=== PATIENT | female | born 1975 | race Caucasian/White ===

== ENCOUNTER 2020-05-09 17:38 | Emergency (ER) | payer BC ==
--- NOTE | 2020-05-09 17:42 | ERPHSYRPT ---
- History of Present Illness Source: patient Exam Limitations: no limitations Timing/Duration: day(s) (Several) Activities at Onset: activity Severity of Dyspnea-Max: moderate Severity of Dyspnea-Current: moderate Possible Cause: no prior episodes Modifying Factors: Improves With: activity (Worsens), coughing Associated Symptoms: cough, No chest pain/discomfort <SHRADDHA KEENE - Last Filed: 05/09/20 18:44> <CALVIN GUERRA - Last Filed: 05/09/20 20:33> - History of Present Illness Time Seen by Provider: 05/09/20 17:42 Physician History: This is a 44-year-old obese white female with a history of hypertension who has a several day history of worsening cough and shortness of breath as well as myalgias arthralgias. The patient's was diagnosed with COVID-19 3 weeks ago. At that time, the patient's COVID-19 test was negative. She is not complained of fever, nausea vomiting or diarrhea. However she does have the above-stated symptoms and they are worsening. (SHRADDHA KEENE) Allergies/Adverse Reactions: fentanyl Adverse Reaction (Verified 05/09/20 18:06) hydromorphone [From Dilaudid] Adverse Reaction (Verified 05/09/20 18:06) morphine Adverse Reaction (Verified 05/09/20 18:06) Home Medications: Amlodipine Besylate 5 mg [Norvasc 5 mg] 10 mg PO DAILY 05/09/20 [History] Ergocalciferol (Vitamin D2) [Vitamin D] 50,000 cap PO DAILY 05/09/20 [History] Nebivolol HCl 5 MG [Bystolic 5 MG] 10 mg PO DAILY 05/09/20 [History] Potassium Citrate [Potassium Citrate ER] 10 meq PO DAILY 05/09/20 [History] Travel Risk - International Travel Have you traveled outside of the country in past 3 weeks: No - Coronavirus Screening Are you exhibiting any of the following symptoms?: Yes Symptoms: Cough: New Onset, Shortness of Breath, Headaches/Body Aches/Fatigue Close contact with a COVID-19 positive Pt in past 14-21 Days: Yes <SHRADDHA KEENE - Last Filed: 05/09/20 18:44> - Review of Systems Constitutional: No Symptoms Eyes: No Symptoms Ears, Nose, & Throat: No Symptoms Respiratory: Cough, Dyspnea Cardiac: No Symptoms Abdominal/Gastrointestinal: No Symptoms Genitourinary Symptoms: No Symptoms Musculoskeletal: Arthralgias, Myalgias Skin: No Symptoms Neurological: No Symptoms Psychological: No Symptoms Endocrine: No Symptoms Hematologic/Lymphatic: No Symptoms Immunological/Allergic: No Symptoms All Other Systems: Reviewed and Negative <SHRADDHA KEENE - Last Filed: 05/09/20 18:44> - Past Medical History Pertinent Past Medical History: Yes Neurological History: No Pertinent History ENT History: No Pertinent History Cardiac History: Hypertension Respiratory History: No Pertinent History Endocrine Medical History: No Pertinent History Musculoskeletal History: No Pertinent History GI Medical History: No Pertinent History History: No Pertinent History Psycho-Social History: No Pertinent History Female Reproductive Disorders: No Pertinent History - Past Surgical History Past Surgical History: Yes Neuro Surgical History: No Pertinent History Cardiac: No Pertinent History Respiratory: No Pertinent History Gastrointestinal: No Pertinent History Genitourinary: No Pertinent History Musculoskeletal: No Pertinent History Female Surgical History: No Pertinent History <SHRADDHA KEENE - Last Filed: 05/09/20 18:44> - Physical Exam General Appearance: mild distress, alert, anxiety, obese Eye Exam: PERRL/EOMI, eyes nml inspection Ears, Nose, Throat Exam: hearing grossly normal Neck Exam: normal inspection, non-tender, supple, full range of motion Respiratory Exam: normal breath sounds, lungs clear, respiratory distress, airway intact, No chest tenderness Cardiovascular/Chest Exam: normal heart sounds, regular rate/rhythm, normal peripheral pulses Abdominal/Gastrointestinal Exam: soft, normal bowel sounds, No tenderness Rectal Exam: not done Extremity Exam: non-tender, normal range of motion, normal inspection Neurologic Exam: alert, oriented x 3, cooperative, inpatient pharmacist II-XII nml as tested, normal mood/affect, nml cerebellar function, nml station & gait, sensation nml Skin Exam: normal color, warm, dry Lymphatic Exam: No adenopathy SpO2 Interpretation: normal O2 Delivery: Room Air <SHRADDHA KEENE - Last Filed: 05/09/20 18:44> - Nursing Vital Signs Nursing Vital Signs: Initial Vital Signs Temperature 99.7 F 05/09/20 18:06 Pulse Rate 78 11/27/20 18:06 Respiratory Rate 24 05/09/20 18:06 Blood Pressure 171/103 05/09/20 18:06 O2 Sat by Pulse Oximetry 97 05/09/20 18:06 Pain Scale Pain Intensity 4 - Course Nursing assessment & vital signs reviewed: Yes EKG Interpreted by Me: RATE (73), Sinus Rhythm, NORMAL AXIS, NORMAL INTERVALS, NORMAL QRS, NORMAL ST-T, Other (No comparison EKG available. Today's EKG shows no acute ischemic changes.) <SHRADDHA KEENE - Last Filed: 05/09/20 18:44> - Course EKG Interpreted by Me: Non-specific ST Changes - Radiology Exams Chest X-ray Interpretation: Reviewed by me, Teleradiologist Report, No Pneumonia, Other (some scattered minor areas may be early infilt - rad read was negative) <CALVIN GUERRA - Last Filed: 05/09/20 20:33> Ordered Tests: Active Orders 24 hr Category Date Time Status Cruise Counselor STAT Care 05/09/20 18:25 Active EKG-ER Only STAT Care 05/09/20 18:25 Active IV Insertion STAT Care 05/09/20 18:25 Active Isolation, Initiate & Maintain STAT Care 05/09/20 18:25 Active CHEST 1 VIEW (PORTABLE) Stat Exams 05/09/20 18:25 Completed BLOOD CULTURE Stat Lab 05/09/20 Received CBC W DIFF Stat Lab 05/09/20 19:00 Completed CMP Stat Lab 05/09/20 19:00 Completed D-DIMER QUANTITATIVE Stat Lab 05/09/20 19:00 Completed Ferritin Stat Lab 05/09/20 19:00 Completed INFLUENZA A+B PETTY Stat Lab 05/09/20 19:00 Completed LDH-LACTATE DEHYDROGENASE Stat Lab 05/09/20 19:00 Completed Lactic Acid Stat Lab 05/09/20 18:35 Completed Manual Differential NC Stat Lab 05/09/20 19:00 Completed [place] Screen Stat Lab 05/09/20 19:00 Completed TROPONIN Q3H Lab 05/09/20 19:00 Completed TROPONIN Q3H Lab 05/09/20 21:30 Ordered TROPONIN Q3H Lab 05/10/20 00:30 Ordered TROPONIN Q3H Lab 05/10/20 03:30 Ordered TROPONIN Q3H Lab 11/28/20 06:30 Ordered Medication Summary Generic Name Dose Route Start Last Admin Trade Name Torrey PRN Reason Stop Dose Admin Sodium Chloride 1,000 mls @ 50 mls/hr 05/09/20 18:30 05/09/20 18:50 Sodium Chloride 0.9% 1000 Ml IV 06/08/20 18:29 50 mls/hr .Q20H ROMERO Administration Lab/Rad Data: Laboratory Result Diagrams 05/09/20 19:00 05/09/20 19:00 Laboratory Results 05/09/20 05/09/20 05/09/20 Range/Units 19:00 19:00 19:00 WBC (4.0-10.5) K/mm3 RBC (4.1-5.4) M/mm3 Hgb (12.0-16.0) gm/dl Hct (35-47) % MCV (78-100) fl MCH (26-32) pg MCHC (32-36) g/dl RDW (11.5-14.0) % Plt Count (150-450) K/mm3 MPV (7.5-11.0) fl Segmented Neutrophils (36.0-66.0) % Lymphocytes (Manual) (24-44) % Monocytes (Manual) (0.0-12.0) % Eosinophils (Manual) (0.00-3.0) % Platelet Estimate (NORMAL) RBC Morphology D-Dimer (215-500) ng/mL Sodium (137-145) mmol/L Potassium (3.5-5.1) mmol/L Chloride (98-107) mmol/L Carbon Dioxide (22-30) mmol/L Anion Gap (5-15) MEQ/L BUN (7-17) mg/dL Creatinine (0.52-1.04) mg/dL Estimated GFR ML/MIN Glucose (74-106) mg/dL Lactic Acid (0.4-2.0) Calcium (8.4-10.2) mg/dL Ferritin 32.3 (6.24-137) ng/mL Total Bilirubin (0.2-1.3) mg/dL AST (14-36) U/L ALT (0-35) U/L Alkaline Phosphatase (38-126) U/L Lactate Dehydrogenase (120-246) U/L Troponin I < 0.012 (0.000-0.034) ng/mL Serum Total Protein (6.3-8.2) g/dL Albumin (3.5-5.0) g/dL Monoscreen NEGATIVE (Negative) Influenza Type A Ag (NEGATIVE) Influenza Type B Ag (NEGATIVE) Group A Strep Antibody (NEGATIVE) Slides for Path Review 05/09/20 05/09/20 05/09/20 Range/Units 19:00 19:00 19:00 WBC (4.0-10.5) K/mm3 RBC (4.1-5.4) M/mm3 Hgb (12.0-16.0) gm/dl Hct (35-47) % MCV (78-100) fl MCH (26-32) pg MCHC (32-36) g/dl RDW (11.5-14.0) % Plt Count (150-450) K/mm3 MPV (7.5-11.0) fl Segmented Neutrophils (36.0-66.0) % Lymphocytes (Manual) (24-44) % Monocytes (Manual) (0.0-12.0) % Eosinophils (Manual) (0.00-3.0) % Platelet Estimate (NORMAL) RBC Morphology D-Dimer 319 (215-500) ng/mL Sodium (137-145) mmol/L Potassium (3.5-5.1) mmol/L Chloride (98-107) mmol/L Carbon Dioxide (22-30) mmol/L Anion Gap (5-15) MEQ/L BUN (7-17) mg/dL Creatinine (0.52-1.04) mg/dL Estimated GFR ML/MIN Glucose (74-106) mg/dL Lactic Acid (0.4-2.0) Calcium (8.4-10.2) mg/dL Ferritin (6.24-137) ng/mL Total Bilirubin (0.2-1.3) mg/dL AST (14-36) U/L ALT (0-35) U/L Alkaline Phosphatase (38-126) U/L Lactate Dehydrogenase (120-246) U/L Troponin I (0.000-0.034) ng/mL Serum Total Protein (6.3-8.2) g/dL Albumin (3.5-5.0) g/dL Monoscreen (Negative) Influenza Type A Ag NEGATIVE (NEGATIVE) Influenza Type B Ag NEGATIVE (NEGATIVE) Group A Strep Antibody NOT DETECTED (NEGATIVE) Slides for Path Review 05/09/20 05/09/20 05/09/20 Range/Units 19:00 19:00 18:35 WBC 11.6 H (4.0-10.5) K/mm3 RBC 5.03 (4.1-5.4) M/mm3 Hgb 15.1 (12.0-16.0) gm/dl Hct 46.5 (35-47) % MCV 92.4 (78-100) fl MCH 30.0 (26-32) pg MCHC 32.5 (32-36) g/dl RDW 13.7 (11.5-14.0) % Plt Count 251 (150-450) K/mm3 MPV 12.3 H (7.5-11.0) fl Segmented Neutrophils 63 (36.0-66.0) % Lymphocytes (Manual) 29 (24-44) % Monocytes (Manual) 3 (0.0-12.0) % Eosinophils (Manual) 5 H (0.00-3.0) % Platelet Estimate NORMAL (NORMAL) RBC Morphology NORMAL D-Dimer (215-500) ng/mL Sodium 142 (137-145) mmol/L Potassium 3.6 (3.5-5.1) mmol/L Chloride 109 H (98-107) mmol/L Carbon Dioxide 23 (22-30) mmol/L Anion Gap 13.6 (5-15) MEQ/L BUN 10 (7-17) mg/dL Creatinine 0.60 (0.52-1.04) mg/dL Estimated GFR > 60.0 ML/MIN Glucose 99 (74-106) mg/dL Lactic Acid 1.1 (0.4-2.0) Calcium 9.8 (8.4-10.2) mg/dL Ferritin (6.24-137) ng/mL Total Bilirubin 0.30 (0.2-1.3) mg/dL AST 23 (14-36) U/L ALT 21 (0-35) U/L Alkaline Phosphatase 54 (38-126) U/L Lactate Dehydrogenase 152 (120-246) U/L Troponin I (0.000-0.034) ng/mL Serum Total Protein 8.1 (6.3-8.2) g/dL Albumin 4.9 (3.5-5.0) g/dL Monoscreen (Negative) Influenza Type A Ag (NEGATIVE) Influenza Type B Ag (NEGATIVE) Group A Strep Antibody (NEGATIVE) Slides for Path Review Cancelled - Progress Air Movement: good Counseled pt/family regarding: lab results, diagnosis, rad results <SHRADDHA KEENE - Last Filed: 05/09/20 18:44> - Progress Progress: improved, re-examined Air Movement: good Blood Culture(s) Obtained: No Antibiotics given: No Counseled pt/family regarding: lab results, diagnosis, need for follow-up, rad results <CALVIN GUERRA - Last Filed: 05/09/20 20:33> - Progress Progress Note: 05/09/20 18:42 pt taken at change of shift in handoff from Dr. Keene after discussion of pending labs, symptoms Hx, intro to pt , and current workup. 05/09/20 20:18 pt has no current CP or shortness of breath; discussed the limitations of testing performed and that additional pathology could be evolving undetected including cardiovascular and CAD even with normal reported cath 7-10 yrs ago and with neg D dimer; offered admission. pt chooses DC with outpt f/u with PCP and I advised also ram car operator as she may be a long-hauler covid. she is comfortable with this and has capacity to make this choice. 05/09/20 20:31 also discussed was DVT proph and steroids, but since pt does not yet have a c ovid diagnosis and is OK from O2 standpoint it is not clinically indicated , and pt also agrees with the plan to hold off these at this time and has the capacity to make this choice. (CALVIN GUERRA) - Departure Departure Disposition: Home Critical Care Time: No <SHRADDHA KEENE - Last Filed: 05/09/20 18:44> - Departure Departure Disposition: Home Critical Care Time: No <CALVIN GUERRA - Last Filed: 05/09/20 20:33> - Departure Clinical Impression: Cough, Person under investigation for COVID-19, Hypertension Condition: Good Referrals: DEREK WELCH, ROOM SERVICE RUNNER [Primary Care Provider] - Instructions: High Blood Pressure (DC), Cough, Adult (DC), Coronavirus Disease 2019 (COVID-19) (DC) Additional Instructions: your Covid test will take a few days to return and you should self quarantine until this is back and continue if it is positive. Your lung tests show that you are currently doing OK, even if COvid is present , but if symptoms increase return . see your Dr to consider referral to a lung specialist . continue to recheck your blood pressure and take prescribed meds for this and see your Dr. this week to adjust your meds for optimal control. return meantime if rising higher or furhter symptoms of concern meantime. although our initial testing does not find any heart problems, this is still possible to be evolving undetected especially with COvid, and you should return meantime if any concerns .
[2020-05-09] MEDS ORDERED: Sodium Chloride 0.9% 1000 ML 1,000 ML IV SCH (18:30)
[2020-05-09] MEDS ORDERED: Sodium Chloride 0.9% 1000 ML 1,000 ML ONE (18:50)
[2020-05-09 19:23] LABS: Hematocrit 46.5 % (35-47); Hemoglobin 15.1 gm/dl (12.0-16.0); Mean Cell Volume 92.4 fl (78-100); Mean Corpuscular Hgb Concent. 32.5 g/dl (32-36); Mean Platelet Volume 12.3 fl (7.5-11.0); Platelet Count 251 K/mm3 (150-450); Red Blood Count 5.03 M/mm3 (4.1-5.4); Red Cell Distribution Width 13.7 % (11.5-14.0); White Blood Count 11.6 K/mm3 (4.0-10.5)
[2020-05-09 19:26] LABS: ALBUMIN 4.9 g/dL (3.5-5.0); ALKALINE PHOSPHATASE 54 U/L (38-126); ANION GAP 13.6 MEQ/L (5-15); BLOOD UREA NITROGEN 10 mg/dL (7-17); CHLORIDE 109 mmol/L (98-107); Calcium 9.8 mg/dL (8.4-10.2); Carbon Dioxide 23 mmol/L (22-30); EST GLOMERULAR FILTRATION RATE > 60.0 ML/MIN; Glucose 99 mg/dL (74-106); LDH-LACTATE DEHYDROGENASE 152 U/L (120-246); Potassium 3.6 mmol/L (3.5-5.1); SGOT/AST 23 U/L (14-36); SGPT/ALT 21 U/L (0-35); SODIUM 142 mmol/L (137-145); Total Protein 8.1 g/dL (6.3-8.2)
--- NOTE | 2020-05-09 19:30 | XRAY ---
Indication: Fever, cough, and chest pain. Comparison: November 07, 2009. Portable chest again demonstrates normal heart and lungs. Bony thorax intact with interval distal left clavicle resection.
[2020-05-09 19:46] LABS: INFLUENZA A NEGATIVE (NEGATIVE); INFLUENZA B NEGATIVE (NEGATIVE)
[2020-05-09 19:55] LABS: Eosinophil 5 % (0.00-3.0); Lymphocytes 29 % (24-44); Monocyte 3 % (0.0-12.0); Neutrophils 63 % (36.0-66.0); Platelet Estimate NORMAL (NORMAL); Total Cells Counted 100
[2020-05-09 20:41] VITALS: BP 147/82; PULSE 67; O2SAT 98
== END 2020-05-09 21:05 | disposition home or self-care (01) ==
LOC: ED 17:38
DX: R05 Cough (principal); I10 Essential (primary) hypertension; R06.02 Shortness of breath; R51.9 Headache, unspecified; M79.10 Myalgia, unspecified site; Z79.899 Other long term (current) drug therapy; Z20.828 Contact with and (suspected) exposure to other viral communicable diseases
CPT/HCPCS: 36000; 36415; 71045; 80053; 82728; 83605; 83615; 84484; 85025; 85379; 86308; 87040; 87400; 87651; 93005; 93041; 96360; 96361; 99284; U0003

== ENCOUNTER 2020-06-09 18:18 | Emergency (ER) | payer BC ==
[2020-06-09] MEDS ORDERED: TYLENOL 325 MG PO ONE (19:16)
[2020-06-09] MEDS ORDERED: BENADRYL 50 MG/ML IV ONE (19:18)
[2020-06-09] MEDS ORDERED: Compazine 10 MG/2 ML IV ONE (19:18)
[2020-06-09] MEDS ORDERED: TYLENOL 325 MG ONE (19:29)
[2020-06-09] MEDS ORDERED: BENADRYL 50 MG/ML ONE (19:29)
[2020-06-09] MEDS ORDERED: Sodium Chloride 0.9% 1000 ML 1,000 ML ONE (19:30)
[2020-06-09] MEDS ORDERED: Compazine 10 MG/2 ML ONE (19:30)
[2020-06-09] MEDS ORDERED: Sodium Chloride 0.9% 1000 ML 1,000 ML IV SCH (19:30)
[2020-06-09 19:58] LABS: Absolute Neutrophil Ct (ANC) 6.14 (1.4-6.9); BASOPHIL % 0.3 % (0.0-0.4); Basophil (Absolute #) 0.03 (0-0.4); Eosinophil % 5.8 % (0.00-5.0); Eosinophil (Absolute #) 0.57 (0-0.5); Hematocrit 47.5 % (35-47); Hemoglobin 15.3 gm/dl (12.0-16.0); Lymphocyte (Absolute #) 2.18 (1.0-4.6); Mean Cell Volume 91.5 fl (78-100); Mean Corpuscular Hemoglobin 29.5 pg (26-32); Mean Corpuscular Hgb Concent. 32.2 g/dl (32-36); Mean Platelet Volume 10.7 fl (7.5-11.0); Monocyte (Absolute #) 0.99 (0.0-1.3); Neutrophil % 61.9 % (36.0-66.0); Platelet Count 282 K/mm3 (150-450); Red Blood Count 5.19 M/mm3 (4.1-5.4); Red Cell Distribution Width 13.7 % (11.5-14.0); White Blood Count 9.9 K/mm3 (4.0-10.5)
[2020-06-09 20:10] LABS: ALBUMIN 4.4 g/dL (3.5-5.0); ALKALINE PHOSPHATASE 51 U/L (38-126); ANION GAP 8.4 MEQ/L (5-15); BLOOD UREA NITROGEN 10 mg/dL (7-17); CHLORIDE 104 mmol/L (98-107); Calcium 9.3 mg/dL (8.4-10.2); Carbon Dioxide 29 mmol/L (22-30); Creatinine 1 0.64 mg/dL (0.52-1.04); EST GLOMERULAR FILTRATION RATE > 60.0 ML/MIN; Glucose 106 mg/dL (74-106); SGOT/AST 30 U/L (14-36); SGPT/ALT 31 U/L (0-35); SODIUM 137 mmol/L (137-145); Total Protein 7.6 g/dL (6.3-8.2)
[2020-06-09 21:11] VITALS: O2SAT 97
--- NOTE | 2020-06-09 21:18 | ERPHSYRPT ---
- History of Present Illness Time Seen by Provider: 06/09/20 18:30 Source: patient Exam Limitations: no limitations Patient Subjective Stated Complaint: pt here for headache and not feeling well for 2 months, she states she has ran a fever almost very day for 2 month, also co neck pain. she has been seen at 2 hospitals for the same thing Triage Nursing Assessment: pt alert, walked in, resp easy, has face mask in place, pt holding hand over eyes, lights dimmed, skin w/d/p Physician History: Patient is a 44-year-old female presents to our ED with complaints of a global headache for 2 months. Patient advises that she has a history of pituitary adenoma. Symptoms started with several bouts of diarrhea. Diarrhea essentially resolved. Patient states that her headache has been associated with low-grade fevers. Patient intermittently experiences neck stiffness. No trauma. No nausea or vomiting. Mild photophobia. Patient has been seen at outside hospital for this same issue. Patient was treated with antibiotics and steroids. Patient symptoms transiently resolved for approximately 2 weeks. Patient symptoms recurred over the past 2 weeks. Patient voices no other complaints or concerns at this time. Timing/Duration: other (2 months) Quality: aching Head Pain Location: global Severity of Pain-Max: moderate Severity of Pain-Current: mild Recent Head Trauma: no recent headache/trauma, chronic headaches Modifying Factors: Improves With: exposure to light Associated Symptoms: sensitive to light, No dizziness, No facial pain, No loss of consciousness, No nasal congestion, No numbness in legs/feet, No rash, No sweating, No scotoma, No seizures, No speech problems, No trouble walking, No visual disturbance, No weakness Previous symptoms: no prior history Allergies/Adverse Reactions: fentanyl Adverse Reaction (Verified 06/09/20 18:35) hydromorphone [From Dilaudid] Adverse Reaction (Verified 06/09/20 18:35) morphine Adverse Reaction (Verified 06/09/20 18:35) Home Medications: Amlodipine Besylate 5 mg [Norvasc 5 mg] 10 mg PO DAILY 05/09/20 [History] Ergocalciferol (Vitamin D2) [Vitamin D] 50,000 cap PO DAILY 05/09/20 [History] Nebivolol HCl 5 MG [Bystolic 5 MG] 10 mg PO DAILY 05/09/20 [History] Potassium Citrate [Potassium Citrate ER] 10 meq PO DAILY 05/09/20 [History] Hx Tetanus, Diphtheria Vaccination/Date Given: Yes Hx Influenza Vaccination/Date Given: No Hx Pneumococcal Vaccination/Date Given: No Immunizations Up to Date: Yes Travel Risk - International Travel Have you traveled outside of the country in past 3 weeks: No - Coronavirus Screening Symptoms: Fever, Headaches/Body Aches/Fatigue Close contact with a COVID-19 positive Pt in past 14-21 Days: No - Review of Systems Constitutional: No Symptoms, No Fever, No Chills Eyes: No Symptoms Ears, Nose, & Throat: No Symptoms Respiratory: No Symptoms, No Cough, No Dyspnea Cardiac: No Symptoms, No Chest Pain, No Edema, No Syncope Abdominal/Gastrointestinal: No Symptoms, No Abdominal Pain, No Nausea, No Vomiting, No Diarrhea Genitourinary Symptoms: No Symptoms, No Dysuria Musculoskeletal: No Symptoms, No Back Pain, No Neck Pain Skin: No Symptoms, No Rash Neurological: No Symptoms, No Dizziness, No Focal Weakness, No Sensory Changes Psychological: No Symptoms Endocrine: No Symptoms Hematologic/Lymphatic: No Symptoms Immunological/Allergic: No Symptoms All Other Systems: Reviewed and Negative - Past Medical History Pertinent Past Medical History: Yes Neurological History: No Pertinent History ENT History: No Pertinent History Cardiac History: Hypertension Respiratory History: No Pertinent History Endocrine Medical History: No Pertinent History Musculoskeletal History: No Pertinent History GI Medical History: No Pertinent History History: No Pertinent History Psycho-Social History: No Pertinent History Female Reproductive Disorders: No Pertinent History - Past Surgical History Past Surgical History: Yes Neuro Surgical History: No Pertinent History Cardiac: No Pertinent History Respiratory: No Pertinent History Gastrointestinal: Cholecystectomy Genitourinary: No Pertinent History Musculoskeletal: No Pertinent History Female Surgical History: Tubal Ligation - Social History Smoking Status: Never smoker Exposure to second hand smoke: No Drug Use: none Patient Lives Alone: No - Female History Hx Last Menstrual Period: dec Hx Now: No - Nursing Vital Signs Nursing Vital Signs: Initial Vital Signs Temperature 98.7 F 06/09/20 18:24 Pulse Rate 78 06/09/20 18:24 Respiratory Rate 16 06/09/20 18:24 Blood Pressure 191/118 06/09/20 18:24 O2 Sat by Pulse Oximetry 98 06/09/20 18:24 Pain Scale Pain Intensity 2 - Physical Exam General Appearance: no apparent distress Eye Exam: PERRL/EOMI Ears, Nose, Throat Exam: normal ENT inspection, moist mucous membranes Neck Exam: normal inspection, supple, full range of motion, No meningismus Respiratory Exam: normal breath sounds, lungs clear Cardiovascular Exam: regular rate/rhythm, normal heart sounds Gastrointestinal/Abdominal Exam: soft, No tenderness, No distention Back Exam: normal inspection, normal range of motion Extremity Exam: normal inspection Mental Status Exam: alert, oriented x 3, cooperative air crew member Exam: normal hearing, normal speech, PERRL, abnormal gag reflex, No abnormal eye position, No abnormal pupil position, No abnormal speech, No facial asymmetry, No facial droop, No facial paresthesias, No facial weakness, No gaze palsy, No hearing deficit (R), No hearing deficit (L), No tongue deviation to R, No tongue deviation to L, No tongue midline Coordination/Gait Exam: normal gait, normal cerebellar function Motor/Sensory Exam: no motor deficit, no sensory deficit, negative Babinski's sign, No no pronator drift, No sensory deficit, No weak motor strength RUE, No weak motor strength LUE, No weak motor strength RLE, No weak motor strength LLE Skin Exam: normal color, warm, dry, No rash Lymphatic Exam: adenopathy SpO2 Interpretation: normal SpO2: 97 O2 Delivery: Room Air - Course Nursing assessment & vital signs reviewed: Yes - CT Exams Head CT Interpretation: Tele-radiologist Report (Continued normal CT head) Ordered Tests: Active Orders 24 hr Category Date Time Status IV Insertion STAT Care 06/09/20 19:16 Active HEAD WITHOUT CONTRAST [CT] Stat Exams 06/09/20 19:20 Taken BLOOD CULTURE Stat Lab 06/09/20 19:50 Received CBC W DIFF Stat Lab 06/09/20 19:40 Completed CMP Stat Lab 06/09/20 19:40 Completed TROPONIN Q3H Lab 06/09/20 19:40 Completed TROPONIN Q3H Lab 06/09/20 22:30 Ordered TROPONIN Q3H Lab 06/10/20 01:30 Ordered TROPONIN Q3H Lab 06/10/20 04:30 Ordered TROPONIN Q3H Lab 06/10/20 07:30 Ordered UA W/RFX UR CULTURE Stat Lab 06/09/20 20:41 Completed Medication Summary Generic Name Dose Route Start Last Admin Trade Name Freq PRN Reason Stop Dose Admin Sodium Chloride 1,000 mls @ 100 mls/hr 06/09/20 19:30 06/09/20 19:44 Sodium Chloride 0.9% 1000 Ml IV 07/09/20 19:29 100 mls/hr .Q10H ROMERO Administration Discontinued Medications Generic Name Dose Route Start Last Admin Trade Name Freq PRN Reason Stop Dose Admin Acetaminophen 975 mg 06/09/20 19:16 06/09/20 19:36 Tylenol 325 Mg PO 06/09/20 19:17 975 mg STAT ONE Administration Acetaminophen Confirm 06/09/20 19:29 Tylenol 325 Mg Administered 06/09/20 19:30 Dose 975 mg .ROUTE .STK-MED ONE Diphenhydramine HCl 25 mg 06/09/20 19:18 06/09/20 19:47 Benadryl 50 Mg/Ml IV 06/09/20 19:19 25 mg STAT ONE Administration Diphenhydramine HCl Confirm 06/09/20 19:29 Benadryl 50 Mg/Ml Administered 06/09/20 19:30 Dose 50 mg .ROUTE .STK-MED ONE Prochlorperazine Edisylate 10 mg 06/09/20 19:18 06/09/20 19:49 Compazine 10 Mg/2 Ml IV 06/09/20 19:19 10 mg STAT ONE Administration Prochlorperazine Edisylate Confirm 06/09/20 19:30 Compazine 10 Mg/2 Ml Administered 06/09/20 19:31 Dose 10 mg .ROUTE .STK-MED ONE Lab/Rad Data: Laboratory Result Diagrams 06/09/20 19:40 06/09/20 19:40 Laboratory Results 06/09/20 06/09/20 06/09/20 Range/Units 20:41 19:40 19:40 WBC (4.0-10.5) K/mm3 RBC (4.1-5.4) M/mm3 Hgb (12.0-16.0) gm/dl Hct (35-47) % MCV (78-100) fl MCH (26-32) pg MCHC (32-36) g/dl RDW (11.5-14.0) % Plt Count (150-450) K/mm3 MPV (7.5-11.0) fl Gran % (36.0-66.0) % Eos # (Auto) (0-0.5) Absolute Lymphs (auto) (1.0-4.6) Absolute Monos (auto) (0.0-1.3) Lymphocytes % (24.0-44.0) % Monocytes % (0.0-12.0) % Eosinophils % (0.00-5.0) % Basophils % (0.0-0.4) % Absolute Granulocytes (1.4-6.9) Basophils # (0-0.4) Sodium 137 (137-145) mmol/L Potassium 4.0 (3.5-5.1) mmol/L Chloride 104 (98-107) mmol/L Carbon Dioxide 29 (22-30) mmol/L Anion Gap 8.4 (5-15) MEQ/L BUN 10 (7-17) mg/dL Creatinine 0.64 (0.52-1.04) mg/dL Estimated GFR > 60.0 ML/MIN Glucose 106 (74-106) mg/dL Calcium 9.3 (8.4-10.2) mg/dL Total Bilirubin 0.50 (0.2-1.3) mg/dL AST 30 (14-36) U/L ALT 31 (0-35) U/L Alkaline Phosphatase 51 (38-126) U/L Troponin I < 0.012 (0.000-0.034) ng/mL Serum Total Protein 7.6 (6.3-8.2) g/dL Albumin 4.4 (3.5-5.0) g/dL Urine Color STRAW (YELLOW) Urine Appearance CLEAR (CLEAR) Urine pH 7.0 (5-6) Ur Specific [place] 1.003 (1.005-1.025) Urine Protein NEGATIVE (Negative) Urine Ketones NEGATIVE (NEGATIVE) Urine Blood NEGATIVE (0-5) Scar/ul Urine Nitrite NEGATIVE (NEGATIVE) Urine Bilirubin NEGATIVE (NEGATIVE) Urine Urobilinogen NEGATIVE (0-1) mg/dL Ur Leukocyte Esterase NEGATIVE (NEGATIVE) Urine WBC (Auto) NONE (0-5) /HPF Urine RBC (Auto) NONE (0-2) /HPF U Epithel Cells (Auto) NONE (FEW) /HPF Urine Bacteria (Auto) NONE (NEGATIVE) /HPF Urine Culture Reflexed NO (NO) Urine Glucose NEGATIVE (NEGATIVE) mg/dL 06/09/20 Range/Units 19:40 WBC 9.9 (4.0-10.5) K/mm3 RBC 5.19 (4.1-5.4) M/mm3 Hgb 15.3 (12.0-16.0) gm/dl Hct 47.5 H (35-47) % MCV 91.5 (78-100) fl MCH 29.5 (26-32) pg MCHC 32.2 (32-36) g/dl RDW 13.7 (11.5-14.0) % Plt Count 282 (150-450) K/mm3 MPV 10.7 (7.5-11.0) fl Gran % 61.9 (36.0-66.0) % Eos # (Auto) 0.57 H (0-0.5) Absolute Lymphs (auto) 2.18 (1.0-4.6) Absolute Monos (auto) 0.99 (0.0-1.3) Lymphocytes % 22.0 L (24.0-44.0) % Monocytes % 10.0 (0.0-12.0) % Eosinophils % 5.8 H (0.00-5.0) % Basophils % 0.3 (0.0-0.4) % Absolute Granulocytes 6.14 (1.4-6.9) Basophils # 0.03 (0-0.4) Sodium (137-145) mmol/L Potassium (3.5-5.1) mmol/L Chloride (98-107) mmol/L Carbon Dioxide (22-30) mmol/L Anion Gap (5-15) MEQ/L BUN (7-17) mg/dL Creatinine (0.52-1.04) mg/dL Estimated GFR ML/MIN Glucose (74-106) mg/dL Calcium (8.4-10.2) mg/dL Total Bilirubin (0.2-1.3) mg/dL AST (14-36) U/L ALT (0-35) U/L Alkaline Phosphatase (38-126) U/L Troponin I (0.000-0.034) ng/mL Serum Total Protein (6.3-8.2) g/dL Albumin (3.5-5.0) g/dL Urine Color (YELLOW) Urine Appearance (CLEAR) Urine pH (5-6) Ur Specific [place] (1.005-1.025) Urine Protein (Negative) Urine Ketones (NEGATIVE) Urine Blood (0-5) Scar/ul Urine Nitrite (NEGATIVE) Urine Bilirubin (NEGATIVE) Urine Urobilinogen (0-1) mg/dL Ur Leukocyte Esterase (NEGATIVE) Urine WBC (Auto) (0-5) /HPF Urine RBC (Auto) (0-2) /HPF U Epithel Cells (Auto) (FEW) /HPF Urine Bacteria (Auto) (NEGATIVE) /HPF Urine Culture Reflexed (NO) Urine Glucose (NEGATIVE) mg/dL - Progress Progress: improved Air Movement: good Progress Note: 06/09/20 21:48 Patient reassessed. Repeat neuro exam within normal limits. CT head negative for acute intracranial pathology. Blood laboratory work-up essentially nonremarkable. Patient's headache essentially resolved. Patient requesting discharge. We advised teleneuro as patient symptoms have been ongoing. Patient refused to wait for a teleneuro evaluation. Patient states she wants to go home and she will follow-up with her primary care doctor we did discussed the benefits of a lumbar puncture as well as the risks. Patient declined a lumbar puncture. Patient understand that leaving AGAINST MEDICAL ADVICE result and delayed diagnosis, increased risk of morbidity, mortality, short and disability including . In spite of patient's wrist she has decided to leave without undergoing a lumbar puncture and without blood undergoing a formal teleneuro evaluation. Patient understand that she may return to our ED at any time to complete the advised work-up. Patient agrees to follow-up with her primary care doctor within 48 hours for a reevaluation. Antibiotics given: No Counseled pt/family regarding: lab results, diagnosis, need for follow-up, rad results - Departure Departure Disposition: Home Clinical Impression: Migraine, Neck stiffness Condition: Stable Critical Care Time: No Referrals: DEREK WELCH CABLE TELEVISION ACCESS COORDINATOR [Primary Care Provider] - Additional Instructions: Discharge/Care Plan CARTER HAMMER was seen on 06/09/20 in the Emergency Room. The patient was counseled regarding Diagnosis,Lab results, Imaging studies, need for follow up and when to return to the Emergency Room. Prescriptions given: Discharge Note I have spoken with the patient and/or caregivers. I have explained the patient's condition, diagnosis and treatment plan based on the information available to me at this time. I have answered the patient's and/or caregiver's questions and addressed any concerns. The patient and/or caregivers have as good understanding of the patient's diagnosis, condition and treatment plan as can be expected at this point. The vital signs have been stable. The patient's condition is stable and appropriate for discharge from the emergency department. The patient will pursue further outpatient evaluation with the primary care physician or other designated or consulting physician as outlined in the discharge instructions. The patient and/or caregivers are agreeable to this plan of care and follow-up instructions have been explained in detail. The patient and/or caregivers have received these instruction. The patient/and or caregivers are aware that any significant change in condition or worsening of symptoms should prompt an immediate return to this or the closest emergency department or call 911.
[2020-06-09 21:21] LABS: Appearance CLEAR (CLEAR); Bilirubin NEGATIVE (NEGATIVE); Blood NEGATIVE Ery/ul (0-5); Glucose NEGATIVE (NEGATIVE); Ketones NEGATIVE (NEGATIVE); Leukocyte Esterase NEGATIVE (NEGATIVE); Nitrite NEGATIVE (NEGATIVE); Protein,Urine Dip NEGATIVE (Negative); Specific Gravity 1.003 (1.005-1.025); Urobilinogen NEGATIVE mg/dL (0-1)
[2020-06-09 22:14] VITALS: BP 168/100; PULSE 77
--- NOTE | 2020-06-10 08:50 | XRAY ---
Indication: Fever, headache, and photophobia. Multiple contiguous axial images obtained through the head without contrast. Comparison: March 01, 2010. Normal appearing brain parenchyma, ventricles, and bony calvarium. Visualized paranasal sinuses and mastoid air cells are clear. Impression: Continued normal CT head without contrast exam.
== END 2020-06-09 22:18 | disposition home or self-care (01) ==
LOC: ED 18:18
DX: M43.6 Torticollis (principal)
CPT/HCPCS: 36000; 36415; 70450; 80053; 81001; 84484; 85025; 87040; 96360; 96374; 96375; 99284; J1200; A9270-GY

== ENCOUNTER 2023-08-28 06:42 | Emergency (ER) | payer BC ==
[2023-08-28 07:00] VITALS: RESP 18; TEMP 97.6; O2SAT 99
[2023-08-28] MEDS ORDERED: MOTRIN 600 MG ONE (07:46)
[2023-08-28] MEDS: MOTRIN 600 MG PO ONE (07:46)
--- NOTE | 2023-08-28 07:47 | ERPHSYRPT ---
- History of Present Illness Time Seen by Provider: 08/28/23 07:22 Source: patient Exam Limitations: no limitations Patient Subjective Stated Complaint: R 5th digit toe pain/injury Triage Nursing Assessment: pt transferred from wheelchair to cot by self, at bedside, pt alert and oriented x3, skin pwd, pt c/o R pinky toe injury after stubbing in the door frame about an hr prior to arrival, pt has bruising and swelling on R pinky toe Physician History: 48 years old female presented in the ER with complains of right fifth toe injury. Patient reports she was walking in a dark and accidentally hit a door frame almost an hour prior to arrival with moderate intensity sharp pain, aggravated with movements and ambulation with associated swelling of the toe. No injury anywhere else. No skin break. No injury to the nail. Allergies/Adverse Reactions: fentanyl Allergy (Mild, Verified 08/28/23 06:51) Itching hydromorphone [From Dilaudid] Allergy (Mild, Verified 08/28/23 06:51) Itching morphine Allergy (Mild, Verified 08/28/23 06:51) Itching Home Medications: Amlodipine Besylate 5 mg [Norvasc 5 mg] 10 mg PO DAILY 05/09/20 [History] Nebivolol HCl 5 MG [Bystolic 5 MG] 5 mg PO DAILY 05/09/20 [History] Potassium Citrate [Potassium Citrate ER] 10 meq PO DAILY 05/09/20 [History] Hx Tetanus, Diphtheria Vaccination/Date Given: Yes Hx Influenza Vaccination/Date Given: No Hx Pneumococcal Vaccination/Date Given: No Travel Risk - International Travel Have you traveled outside of the country in past 3 weeks: No - Coronavirus Screening Are you exhibiting any of the following symptoms?: No Close contact with a COVID-19 positive Pt in past 14-21 Days: No - Vaccine Status Have you recieved a Covid-19 vaccination: No - Review of Systems Constitutional: No Symptoms Respiratory: No Symptoms Cardiac: No Symptoms Genitourinary Symptoms: No Symptoms Musculoskeletal: Injury, Joint Pain Skin: No Symptoms Neurological: No Symptoms Endocrine: No Symptoms Hematologic/Lymphatic: No Symptoms - Past Medical History Pertinent Past Medical History: Yes Neurological History: No Pertinent History ENT History: No Pertinent History Cardiac History: Arrhythmia, Hypertension Respiratory History: No Pertinent History Endocrine Medical History: No Pertinent History Musculoskeletal History: Fractures GI Medical History: No Pertinent History History: No Pertinent History Psycho-Social History: No Pertinent History Female Reproductive Disorders: No Pertinent History Other Medical History: AFIB, ANKLE FRACTURE IN 1989. SURGICAL HISTORY: CARDIAC CATH, COLONOSCOPY, TONSILLECTOMY/ADENOIDECTOMY, TUBAL LIGATION, CHOLECYSTECOMY (06-18-2005) - Past Surgical History Past Surgical History: Yes Neuro Surgical History: No Pertinent History Cardiac: Cardiac Catheterization Respiratory: No Pertinent History Gastrointestinal: Cholecystectomy Genitourinary: No Pertinent History Musculoskeletal: Orthopedic Surgery Female Surgical History: Tubal Ligation - Female History Hx Last Menstrual Period: mar 2023 Hx Now: No - Social History Smoking Status: Former smoker Exposure to second hand smoke: No Drug Use: none Patient Lives Alone: No - Nursing Vital Signs Nursing Vital Signs: Initial Vital Signs Temperature 97.6 F 08/28/23 06:53 Pulse Rate 71 08/28/23 06:53 Respiratory Rate 18 08/28/23 06:53 Blood Pressure 156/100 08/28/23 06:53 O2 Sat by Pulse Oximetry 99 08/28/23 06:53 Pain Scale Pain Intensity 6 - Physical Exam General Appearance: no apparent distress, alert Eyes, Ears, Nose, Throat Exam: normal ENT inspection Neck Exam: normal inspection, supple, full range of motion Cardiovascular/Respiratory Exam: normal breath sounds, regular rate/rhythm Ankle Exam: bilateral ankle: non-tender, normal inspection, normal range of motion, no evidence of injury Foot Exam: right foot: bone tenderness (Fifth toe), limited range of motion, pain, soft tissue tenderness, swelling, left foot: non-tender, normal inspection, normal range of motion, no evidence of injury Neuro/Tendon Exam: normal sensation, normal motor functions, normal tendon functions Mental Status Exam: alert, oriented x 3, cooperative Skin Exam: normal color SpO2 Interpretation: normal SpO2: 99 O2 Delivery: Room Air Ordered Tests: Active Orders 24 hr Category Date Time Status FOOT (MINIMUM 3 VIEWS) Stat Exams 08/28/23 07:27 Taken - Progress Progress: pain not gone completely Progress Note: 08/28/23 07:44 48 years old is evaluated for right fifth toe injury prior to arrival. Patient has swelling fifth toe. Given ibuprofen for symptomatic relief. X-rays showed fracture fifth toe proximal phalanx reviewed by me, official report is pending. Distal neurovascular intact. Keon taping done and given postop flat shoe. Recommended outpatient podiatry follow-up. Recommended Tylenol ibuprofen and intermittent ice application/elevation. 08/28/23 07:45 Counseled pt/family regarding: diagnosis, need for follow-up, rad results Medical Desision Making - Diagnostic Testing Diagnostic test were ordered, analyzed, and reviewed by me: Yes Radiological Interpretation: Interpreted by me, Reviewed by me - Risk of complications The pt has a mod risk of morbidity or mortality based on: Need for prescription drug management - Departure Departure Disposition: Home Clinical Impression: Toe fracture, right Qualifiers: Encounter type: initial encounter Toe: lesser toe Fracture type: closed Phalanx: proximal Fracture alignment: nondisplaced Qualified Code(s): S92.514A - Nondisplaced fracture of proximal phalanx of right lesser toe(s), initial encounter for closed fracture Condition: Stable Critical Care Time: No Referrals: DREW SCHUMACHER NP [Primary Care Provider] - Follow up with PCP 1 day SANDY FRANKLIN DPM [ACTIVE STAFF] - Follow up/PCP as directed (Tomorrow morning for appointment for reevaluation) Instructions: Toe Fracture (DC) Additional Instructions: Intermittent ice application. Keep it elevated. Avoid exertional activities. Follow-up with podiatry for reevaluation early next week. Take Tylenol/ibuprofen as needed. Return for any worsening. Prescriptions: Ibuprofen 600 mg PO Q6HPRN PRN 10 Days #20 tablet PRN Reason: Pain
[2023-08-28 07:50] VITALS: BP 140/99; PULSE 74
--- NOTE | 2023-08-28 08:15 | XRAY ---
Indication: 5th digit injury. Comparison: None 3 nonweightbearing views right foot demonstrates mild angulated fracture shaft 5th proximal phalanx with soft tissue swelling. No other bony, articular, or soft tissue abnormalities.
== END 2023-08-28 07:58 | disposition home or self-care (01) ==
LOC: ED 06:42
DX: S92.514A Nondisplaced fracture of proximal phalanx of right lesser toe(s), initial encounter for closed fracture (principal); W22.09XA Striking against other stationary object, initial encounter; I10 Essential (primary) hypertension; Z79.899 Other long term (current) drug therapy; Z28.310 Unvaccinated for COVID-19
CPT/HCPCS: 73630; 99283; A9270-GY

== ENCOUNTER 2024-07-16 16:00 | Emergency (ER) | payer BC ==
[2024-07-16 18:22] VITALS: TEMP 98.6
--- NOTE | 2024-07-16 18:36 | ERPHSYRPT ---
- History of Present Illness Time Seen by Provider: 07/16/24 18:19 Source: patient, family Exam Limitations: no limitations Physician History: This is a 49-year-old overweight white female patient who presents to the emergency department with intermittent, significant abdominal pain in a bandlike fashion at approximately level of the umbilicus associated with at least 1 episode of vomiting. She has had several episodes since prior to this evaluation. She had a severe episode at approximately 4:00 this afternoon. By the time she arrived to the emergency department room her pain subsided. Patient's last colonoscopy was approximately 3 years ago and there were no significant findings per her report. Patient has had a bilateral tubal ligation in the past and cholecystectomy. Patient has a history of hypertension, and atrial fibrillation. Timing/Duration: day(s) (4), intermittent Quality: pressure, tightness, other (Bandlike fashion at the level of the umbilicus) Onset Location: abdominal pain Severity of Pain-Max: moderate Severity of Pain-Current: none Prior abdominal problems: none Sexual intercourse history: non-contributory Modifying Factors: Improves With: nothing Associated Symptoms: abdominal pain, nausea, vomiting (Once during the last 4 days), No fever, No dysuria, No urinary frequency, No lower back pain Allergies/Adverse Reactions: fentanyl Allergy (Mild, Verified 07/16/24 18:11) Itching hydromorphone [From Dilaudid] Allergy (Mild, Verified 07/16/24 18:11) Itching morphine Allergy (Mild, Verified 07/16/24 18:11) Itching Home Medications: Amlodipine Besylate 5 mg [Norvasc 5 mg] 10 mg PO DAILY 05/09/20 [History] Nebivolol HCl 5 MG [Bystolic 5 MG] 5 mg PO DAILY 05/09/20 [History] Potassium Citrate [Potassium Citrate ER] 10 meq PO DAILY 05/09/20 [History] Cholecalciferol (Vitamin D3) [Vitamin D] 1,000 unit PO WEEKLY 07/16/24 [History] Semaglutide [Wegovy] 0.5 mg SQ WEEKLY 07/16/24 [History] Hx Tetanus, Diphtheria Vaccination/Date Given: Yes Hx Influenza Vaccination/Date Given: No Hx Pneumococcal Vaccination/Date Given: No Travel Risk - International Travel Have you traveled outside of the country in past 3 weeks: No - Emerging Infectious Disease Are you exhibiting symptoms associated with any current EIDs: No - Review of Systems Constitutional: No Symptoms Eyes: No Symptoms Ears, Nose, & Throat: No Symptoms Respiratory: No Symptoms Cardiac: No Symptoms Abdominal/Gastrointestinal: Abdominal Pain, Nausea, Vomiting (Vomited once in the last 4 days) Genitourinary Symptoms: No Symptoms Musculoskeletal: No Symptoms Skin: No Symptoms Neurological: No Symptoms Psychological: No Symptoms Endocrine: No Symptoms Hematologic/Lymphatic: No Symptoms Immunological/Allergic: No Symptoms All Other Systems: Reviewed and Negative - Past Medical History Pertinent Past Medical History: Yes Neurological History: No Pertinent History ENT History: No Pertinent History Cardiac History: Arrhythmia, Hypertension Respiratory History: No Pertinent History Endocrine Medical History: No Pertinent History Musculoskeletal History: Fractures GI Medical History: No Pertinent History History: No Pertinent History Psycho-Social History: No Pertinent History Female Reproductive Disorders: No Pertinent History Other Medical History: AFIB, ANKLE FRACTURE IN 1989. SURGICAL HISTORY: CARDIAC CATH, COLONOSCOPY, TONSILLECTOMY/ADENOIDECTOMY, TUBAL LIGATION, CHOLECYSTECOMY (06-18-2005) - Past Surgical History Past Surgical History: Yes Neuro Surgical History: No Pertinent History Cardiac: Cardiac Catheterization Respiratory: No Pertinent History Gastrointestinal: Cholecystectomy Genitourinary: No Pertinent History Musculoskeletal: Orthopedic Surgery Female Surgical History: Tubal Ligation - Social History Smoking Status: Former smoker Exposure to second hand smoke: No Drug Use: none Patient Lives Alone: No - Nursing Vital Signs Nursing Vital Signs: Initial Vital Signs Temperature 98.6 F 07/16/24 18:09 Pulse Rate 74 07/16/24 18:09 Respiratory Rate 13 07/16/24 18:09 Blood Pressure 162/93 07/16/24 18:09 O2 Sat by Pulse Oximetry 98 07/16/24 18:09 Pain Scale Pain Intensity 2 - Physical Exam General Appearance: no apparent distress, alert, anxiety Eye Exam: PERRL/EOMI, eyes nml inspection Ears, Nose, Throat Exam: normal ENT inspection, moist mucous membranes Neck Exam: normal inspection, non-tender, supple, full range of motion Respiratory Exam: normal breath sounds, lungs clear, airway intact, No chest tenderness, No respiratory distress Cardiovascular Exam: regular rate/rhythm, normal heart sounds, normal peripheral pulses Gastrointestinal/Abdomen Exam: soft, normal bowel sounds, No tenderness, No guarding, No rebound Pelvic Exam: not done Rectal Exam: not done Back Exam: normal inspection, normal range of motion, No CVA tenderness, No vertebral tenderness Extremity Exam: normal inspection, normal range of motion, pelvis stable Neurologic Exam: alert, oriented x 3, 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 technician II-XII nml as tested, nml cerebellar function, nml station & gait, sensation nml Skin Exam: normal color, warm, dry Lymphatic Exam: No adenopathy SpO2 Interpretation: normal O2 Delivery: Room Air - Course Nursing assessment & vital signs reviewed: Yes Ordered Tests: Active Orders 24 hr Category Date Time Status ABDOMEN AND PELVIS W/0 CONTRAS [CT] Stat Exams 07/16/24 18:37 Taken AMYLASE Stat Lab 07/16/24 19:10 Completed CBC W DIFF Stat Lab 07/16/24 19:10 Completed CMP Stat Lab 07/16/24 19:10 Completed LIPASE Stat Lab 07/16/24 19:10 Completed UA W/RFX UR CULTURE Stat Lab 07/16/24 18:36 Completed Lab/Rad Data: Laboratory Result Diagrams 07/16/24 19:10 07/16/24 19:10 Laboratory Results 07/16/24 07/16/24 07/16/24 Range/Units 19:10 19:10 18:36 WBC 10.9 H (3.98-10.04) x10^3/uL RBC 4.57 (3.93-5.22) x10^6/uL Hgb 13.3 (11.2-15.7) g/dL Hct 40.8 (34.1-44.9) % MCV 89.3 (79.4-94.8) fL MCH 29.1 (25.6-32.2) pg MCHC 32.6 (32.2-35.5) g/dL RDW 13.2 (11.7-14.4) % Plt Count 230 (182-369) x10^3/uL MPV 10.9 (9.4-12.3) fL Gran % 49.8 (34.0-71.1) % Immature Gran % (Auto) 0.4 (0.001-0.429) % Nucleat RBC Rel Count 0.0 (0.00-0.2) % Eos # (Auto) 2.03 H (0.04-0.36) x10^3/uL Immature Gran # (Auto) 0.04 H (0.001-0.031) x10^3u/L Absolute Lymphs (auto) 2.51 (1.18-3.74) x10^3/uL Absolute Monos (auto) 0.82 (0.24-0.86) x10^3/uL Absolute Nucleated RBC 0.00 (0.00-0.012) x10^3u/L Lymphocytes % 23.1 (19.3-51.7) % Monocytes % 7.5 (4.7-12.5) % Eosinophils % 18.7 H (0.7-5.8) % Basophils % 0.5 (0.1-1.2) % Absolute Granulocytes 5.42 (1.56-6.13) x10^3/uL Basophils # 0.05 (0.01-0.08) x10^3/uL Sodium 140 (135-145) mmol/L Potassium 4.0 (3.5-5.1) mmol/L Chloride 104 (98-107) mmol/L Carbon Dioxide 26 (22-30) mmol/L Anion Gap 12.9 (5-15) MEQ/L BUN 16 (7-17) mg/dL Creatinine 0.76 (0.52-1.04) mg/dL Estimated GFR 96.0 ML/MIN Glucose 90 (74-106) mg/dL Calcium 9.2 (8.4-10.2) mg/dL Total Bilirubin 0.40 (0.2-1.3) mg/dL AST 33 (14-36) U/L ALT 23 (0-35) U/L Alkaline Phosphatase 64 (38-126) U/L Serum Total Protein 6.8 (6.3-8.2) g/dL Albumin 4.3 (3.5-5.0) g/dL Amylase 69 (30-110) U/L Lipase 280 (23-300) U/L Urine Color Yellow (Yellow) Urine Appearance Clear (Clear) Urine pH 5.5 (4.6-8.0) Ur Specific [place] <=1.005 (1.005-1.030) Urine Protein Negative (Negative) Urine Glucose (UA) Negative (Negative) mg/dL Urine Ketones Negative (Negative) Urine Blood Negative (Negative) Urine Nitrite Negative (Negative) Urine Bilirubin Negative (Negative) Urine Urobilinogen 0.2 (0.2) mg/dL Ur Leukocyte Esterase Negative (Negative) U Hyaline Cast (Auto) NONE SEEN (0-2) /LPF Urine Microscopic RBC 0-2 (0-5) /HPF Urine Microscopic WBC 0-2 (0-5) /HPF Ur Epithelial Cells None Seen (None Seen) /HPF Urine Bacteria None Seen (None Seen) /HPF Urine Culture Reflexed NO (NO) Slides for Path Review YES - Progress Progress: re-examined, unchanged Air Movement: good Progress Note: 07/16/24 18:48 My medical decision making and the assignment of moderate complexity to this patient's medical issue today is based on review of the patient's past medical history, review of patient medication list, reviewed patient drug allergy list, history present illness and physical findings on examination. The workup in this patient includes urinalysis, CBC, CMP, amylase, lipase and CT scan of the abdomen pelvis. Differential diagnosis includes but not limited to ileus, gastritis, colitis, diverticulitis, pancreatitis, pyelonephritis, urinary tract infection 07/16/24 20:20 I interpreted the patient's laboratory data results. Based on the laboratory data results there are no acute, emergent medical issues. CT scan of the abdomen pelvis without contrast was interpreted by the radiologist and I reviewed the impression. The impression states no comparison studies. There is evidence of moderate fecal stasis otherwise normal abdomen and pelvis CT scan without contrast Blood Culture(s) Obtained: No Antibiotics given: No Counseled pt/family regarding: lab results, diagnosis, need for follow-up, rad results Medical Desision Making - Diagnostic Testing Diagnostic test were ordered, analyzed, and reviewed by me: Yes Radiological Interpretation: Reviewed by me, Teleradiologist Report - Risk of complications Low Risk: Low risk of morbidity from additional dx testing or treatment - Departure Departure Disposition: Home Clinical Impression: Abdominal pain, Constipation Condition: Stable Critical Care Time: No Referrals: DREW SCHUMACHER NP [Primary Care Provider] - Follow up/PCP as directed Additional Instructions: Drink plenty fluids. Increase your activity. May use [id number] MiraLAX and/or milk of magnesia as instructed on the [id number] products. Call your primary care provider tomorrow, 07/17/2024, to make arranges for follow-up appointment for further evaluation and management.
[2024-07-16 18:48] LABS: Appearance Clear (Clear); Bacteria None Seen /HPF (None Seen); Bilirubin Negative (Negative); Blood Negative (Negative); Epithelial Cells None Seen /HPF (None Seen); Glucose, Urine Negative (Negative); Hyaline Casts NONE SEEN /LPF (0-2); Ketones Negative (Negative); Leukocyte Esterase Negative (Negative); Nitrite Negative (Negative); Ph 5.5 (4.6-8.0); Protein,Urine Dip Negative (Negative); RBC 0-2 /HPF (0-5); Specific Gravity <=1.005 (1.005-1.030); Urobilinogen 0.2 mg/dL (0.2); WBC 0-2 /HPF (0-5)
[2024-07-16 19:15] LABS: Absolute Neutrophil Ct (ANC) 5.42 x10^3/uL (1.56-6.13); BASOPHIL % 0.5 % (0.1-1.2); Basophil (Absolute #) 0.05 x10^3/uL (0.01-0.08); Eosinophil % 18.7 % (0.7-5.8); Eosinophil (Absolute #) 2.03 x10^3/uL (0.04-0.36); Hematocrit 40.8 % (34.1-44.9); Hemoglobin 13.3 g/dL (11.2-15.7); IMMATURE GRAN # 0.04 x10^3u/L (0.001-0.031); IMMATURE GRAN % 0.4 % (0.001-0.429); Lymphocyte (Absolute #) 2.51 x10^3/uL (1.18-3.74); Lymphocytes % 23.1 % (19.3-51.7); Mean Cell Volume 89.3 fL (79.4-94.8); Mean Corpuscular Hemoglobin 29.1 pg (25.6-32.2); Mean Corpuscular Hgb Concent. 32.6 g/dL (32.2-35.5); Mean Platelet Volume 10.9 fL (9.4-12.3); Monocyte (Absolute #) 0.82 x10^3/uL (0.24-0.86); Monocytes % 7.5 % (4.7-12.5); Neutrophil % 49.8 % (34.0-71.1); Platelet Count 230 x10^3/uL (182-369); Red Blood Count 4.57 x10^6/uL (3.93-5.22); Red Cell Distribution Width 13.2 % (11.7-14.4); White Blood Count 10.9 x10^3/uL (3.98-10.04)
[2024-07-16 19:28] LABS: ALBUMIN 4.3 g/dL (3.5-5.0); ANION GAP 12.9 MEQ/L (5-15); BILIRUBIN,TOTAL 0.4 mg/dL (0.2-1.3); Calcium 9.2 mg/dL (8.4-10.2); Creatinine 1 0.76 mg/dL (0.52-1.04); Total Protein 6.8 g/dL (6.3-8.2)
[2024-07-16 19:38] LABS: Slide Review 1 YES
[2024-07-16 20:16] VITALS: BP 146/92; PULSE 72; RESP 22; O2SAT 99
--- NOTE | 2024-07-17 08:47 | XRAY ---
Indication: Abdomen pain. Vomiting. Multiple contiguous axial images obtained through the abdomen and pelvis without contrast. Comparison: None Lung bases clear. Heart not enlarged. Noncontrasted stomach and bowel loops appear nonobstructed with normal appendix. There is moderate diffuse scattered colonic fecal debris. Previous cholecystectomy. No free fluid/air. Remaining liver, pancreas, spleen, adrenal glands, kidneys, ureters, bladder, uterus, and aorta are unremarkable for noncontrast exam. Osseous structures intact with minimal degenerative changes throughout spine. No ventral or inguinal hernias. Impression: Moderate diffuse fecal stasis. Remaining CT abdomen/pelvis without contrast exam is negative.
== END 2024-07-16 20:40 | disposition home or self-care (01) ==
LOC: ED 16:00
DX: R10.33 Periumbilical pain (principal); K59.00 Constipation, unspecified; R11.2 Nausea with vomiting, unspecified; I10 Essential (primary) hypertension; Z79.85 Long-term (current) use of injectable non-insulin antidiabetic drugs; Z79.899 Other long term (current) drug therapy
CPT/HCPCS: 36415; 74176; 80053; 81001; 82150; 83690; 85025; 99284